=== PATIENT | female | born 1995 | race Caucasian/White ===

== ENCOUNTER 2016-06-10 07:22 | Emergency (ER) | payer MEDICAID ==
[~2016-06-10] VITALS: Ht 172.7 cm; Wt 104.0 kg
[2016-06-10] MEDS ORDERED: SODIUM CHLORIDE 0.9% 1,000 ML IV ONE (07:56)
[2016-06-10] MEDS ORDERED: KETOROLAC 30MG/ML VIAL IV ONE (08:00)
[2016-06-10 08:15] LABS: BASOPHILS % 0.9 % (0.0-2.0); EOSINOPHILS % 0.6 % (0.0-5.0); HEMATOCRIT. 38.8 % (36.0-48.0); HEMOGLOBIN. 12.8 g/dL (12.0-16.0); LYMPHOCYTES % 17.5 % (20.0-50.0); MEAN CORPUSCULAR HEMOGLOBIN 27.7 pg (28.0-32.0); MEAN CORPUSCULAR HGB CONC 32.8 g/dL (31.0-37.0); MEAN CORPUSCULAR VOLUME 84.5 fL (81.0-99.0); MEAN PLATELET VOLUME 9.2 fl (7.4-10.4); MONOCYTES % 4.7 % (2.0-8.0); NEUTROPHILS % 76.3 % (40.0-76.0); PLATELET 310 x1000/uL (130-400); RED CELL DISTRIBUTION WIDTH 13.8 % (11.6-14.6); WHITE BLOOD COUNT 16.3 x1000/uL (4.5-11.0)
[2016-06-10 08:22] LABS: PARTIAL THROMBOPLASTIN TIME 27.9 sec (24.0-34.0); PROTHROMBIN TIME 10.4 sec
[2016-06-10 08:26] LABS: ALANINE AMINOTRANSFERASE 30 IU/L (13-61); ALBUMIN 3.8 g/dL (3.4-5.0); ANION GAP 14; CALCIUM 9.3 mg/dL (8.5-10.1); CARBON DIOXIDE 26 mEq/L (21-32); CHLORIDE 104 mEq/L (98-107); INDEX HEMOLYSI 1 (1-3); INDEX ICTERIC 1 (1-4); INDEX LIPEMIC 1 (1-3); LIPASE 127 IU/L (73-393); UREA NITROGEN BLOOD 8 mg/dL (7-21); eGFR > 60 mL/min (>60)
[2016-06-10 08:47] LABS: GLUCOSE URINE NEGATIVE (NEGATIVE); KETONES URINE NEGATIVE (NEGATIVE); LEUKOCYTE ESTERASE URINE 3+ (NEGATIVE); NITRITE URINE POSITIVE (NEGATIVE); OCCULT BLOOD URINE 3+ (NEGATIVE); PH URINE 5.5 (4.5-8.0); PROTEIN URINE 2+ (NEGATIVE); SPECIFIC GRAVITY URINE 1.018 (1.005-1.030); UROBILINOGEN URINE 0.2 E.U./dL (0.2-1.0)
[2016-06-10 08:48] LABS: CLARITY URINE CLOUDY (CLEAR); COLOR URINE YELLOW (YELLOW)
[2016-06-10] MEDS ORDERED: CEFTRIAXONE 1 G PREMIX 50 ML IV ONE (09:00)
[2016-06-10 09:07] LABS: RBC URINE 25-50 /hpf (0-2); WBC URINE 50-100 /hpf (0-2)
[2016-06-10 09:08] LABS: BACTERIA URINE 2+; SQUAMOUS EPITHELIAL CELL URINE 3+ /lpf (RARE/1+)
[2016-06-10] MEDS ORDERED: LEVOFLOXACIN 500MG TABLET PO ONE (10:30)
[2016-06-10 11:31] VITALS: BP 123/74
== END 2016-06-10 11:56 | disposition home or self-care (01) ==
LOC: ER 08:20
DX: N10 Acute pyelonephritis (principal); R10.31 Right lower quadrant pain; M54.5 Low back pain; K76.0 Fatty (change of) liver, not elsewhere classified; R11.2 Nausea with vomiting, unspecified; R16.0 Hepatomegaly, not elsewhere classified; Z90.49 Acquired absence of other specified parts of digestive tract
CPT/HCPCS: 36415; 74176; 80053; 81001; 81025; 83690; 85025; 85610; 85730; 87077; 87086; 87186; 96361; 96365; 96375; 99285; J0696; J1885; J7030; Z7610

== ENCOUNTER 2016-11-07 12:19 | Emergency (ER) | payer MEDICAID ==
[~2016-11-07] VITALS: Ht 172.7 cm; Wt 95.0 kg
[2016-11-07] MEDS ORDERED: IBUPROFEN 600MG TABLET PO ONE (15:15)
[2016-11-07 16:01] VITALS: BP 127/73
== END 2016-11-07 16:08 | disposition home or self-care (01) ==
LOC: ER 15:00
DX: F41.9 Anxiety disorder, unspecified (principal); R51 Headache; E66.9 Obesity, unspecified
CPT/HCPCS: 99284

== ENCOUNTER 2020-09-19 16:06 | Emergency (ER) | payer MEDICAID, OTHER ==
[~2020-09-19] VITALS: Ht 172.7 cm; Wt 127.0 kg
[2020-09-19 18:41] LABS: BASOPHILS % 0.6 % (0.0-2.0); EOSINOPHILS % 0.8 % (0.0-5.0); HEMATOCRIT. 37.5 % (36.0-48.0); LYMPHOCYTES % 25.1 % (20.0-50.0); MEAN CORPUSCULAR HEMOGLOBIN 28.3 pg (28.0-32.0); MONOCYTES % 6.2 % (2.0-8.0); NEUTROPHILS % 67.3 % (40.0-76.0); PLATELET 356 x1000/uL (130-400); RED BLOOD CELL COUNT 4.57 mill/uL (4.2-5.4); RED CELL DISTRIBUTION WIDTH 14.3 % (11.6-14.6)
[2020-09-19 18:45] LABS: CHLORIDE 107 mEq/L (98-107)
[2020-09-19 18:56] LABS: CLARITY URINE TURBID (CLEAR); COLOR URINE ORANGE (YELLOW); KETONES URINE TRACE (NEGATIVE); LEUKOCYTE ESTERASE URINE 2+ (NEGATIVE); NITRITE URINE NEGATIVE (NEGATIVE); OCCULT BLOOD URINE 3+ (NEGATIVE); PH URINE 7.5 (4.5-8.0); PROTEIN URINE 2+ (NEGATIVE); SPECIFIC GRAVITY URINE 1.026 (1.005-1.030)
[2020-09-19 19:08] LABS: B-HCG QUANTITATIVE 3908 mIU/mL (<3)
[2020-09-19] MEDS ORDERED: CEFTRIAXONE SODIUM 1 G/VIAL IM ONE (19:30)
[2020-09-19] MEDS ORDERED: LIDOCAINE HCL 1% 20ML VIAL (Pyxis) INJ INFIL ONE (20:00)
[2020-09-19] MEDS ORDERED: CEPH500C2 MT (20:39)
[2020-09-19 21:48] VITALS: BP 125/72
== END 2020-09-19 21:50 | disposition home or self-care (01) ==
LOC: ER 17:46
DX: O23.41 Unspecified infection of urinary tract in pregnancy, first trimester (principal); Z3A.01 Less than 8 weeks gestation of pregnancy
CPT/HCPCS: 36415; 76801; 76817; 80053; 81003; 81025; 84702; 85025; 86850; 86900; 86901; 96372; 99284; J0696; J3490

== ENCOUNTER 2021-02-19 09:40 | Observation (INO) | payer OTHER ==
[~2021-02-19 09:40] MED LIST: CEPH500C2 MT
[2021-02-19 12:41] LABS: BASOPHILS % 0.5 % (0.0-2.0); EOSINOPHILS % 0.2 % (0.0-5.0); HEMATOCRIT. 36.3 % (36.0-48.0); HEMOGLOBIN. 11.5 g/dL (12.0-16.0); LYMPHOCYTES % 12.2 % (20.0-50.0); MEAN CORPUSCULAR HEMOGLOBIN 26.4 pg (28.0-32.0); MEAN CORPUSCULAR VOLUME 83.3 fL (81.0-99.0); MEAN PLATELET VOLUME 9.2 fl (7.4-10.4); MONOCYTES % 4.4 % (2.0-8.0); NEUTROPHILS % 82.7 % (40.0-76.0); PLATELET 347 x1000/uL (130-400); RED BLOOD CELL COUNT 4.36 mill/uL (4.2-5.4); RED CELL DISTRIBUTION WIDTH 14.7 % (11.6-14.6)
[2021-02-19 12:45] LABS: CHLORIDE 107 mEq/L (98-107); CLARITY URINE CLOUDY (CLEAR); COLOR URINE DARK YELLOW (YELLOW); KETONES URINE 1+ (NEGATIVE); LEUKOCYTE ESTERASE URINE 1+ (NEGATIVE); NITRITE URINE NEGATIVE (NEGATIVE); OCCULT BLOOD URINE NEGATIVE (NEGATIVE); PH URINE 5.5 (4.5-8.0); PROTEIN URINE 1+ (NEGATIVE)
[2021-02-19] MEDS ORDERED: PNV1TABL50 MT (14:43)
== END 2021-02-19 14:50 | disposition home or self-care (01) ==
LOC: 8 EST A/PP 09:40
PROVIDERS: ADMIT Obstetrics & Gynecology; ATTEND Obstetrics & Gynecology
DX: O36.8120 Decreased fetal movements, second trimester, not applicable or unspecified (principal); Z3A.27 27 weeks gestation of pregnancy
CPT/HCPCS: 36415; 59025; 76805; 80053; 81003; 85025; G0378; 99281

== ENCOUNTER 2021-04-25 18:45 | Observation (INO) | payer MEDICAID ==
[~2021-04-25] VITALS: Ht 172.7 cm; Wt 134.3 kg
[~2021-04-25 18:45] MED LIST changes: +PNV1TABL50 MT
[2021-04-25] MEDS ORDERED: PRENATAL MULTIVITAMIN (21:01)
== END 2021-04-25 21:25 | disposition home or self-care (01) ==
LOC: 8EST NSY 18:45 → 8 EST LDRP 19:14
PROVIDERS: ADMIT Obstetrics & Gynecology; ATTEND Obstetrics & Gynecology
DX: O36.8330 Maternal care for abnormalities of the fetal heart rate or rhythm, third trimester, not applicable or unspecified (principal); O62.9 Abnormality of forces of labor, unspecified; Z3A.36 36 weeks gestation of pregnancy
CPT/HCPCS: 76805; 76818; 99281; G0378; 59025

== ENCOUNTER 2021-05-08 18:32 | Inpatient (IN) | payer MEDICAID, OTHER ==
[~2021-05-08] VITALS: Ht 172.7 cm; Wt 134.7 kg
[2021-05-08] MEDS: LACTATED RINGERS 1,000 ML IV SCH (00:35)
[~2021-05-08 18:32] MED LIST changes: -CEPH500C2 MT; -PNV1TABL50 MT; +PRENATAL MULTIVITAMIN
[2021-05-08] MEDS ORDERED: DEXT 5%/LACTATED RINGERS 1,000 ML IV SCH (20:45)
[2021-05-08] MEDS ORDERED: RHO(D) IMMUNE GLOBULIN 300 MCG/SYR IM ONE (20:45)
[2021-05-08] MEDS ORDERED: LIDOCAINE HCL 1% 20ML VIAL (Pyxis) INJ INFIL SCH (20:45)
[2021-05-08] MEDS ORDERED: AMPICILLIN 2GM in NS 100ML 100 ML IV NR (21:00)
[2021-05-08] MEDS ORDERED: DEXT 5%/LR + PITOCIN 20UNITS/L 1,000 ML IV SCH (21:15)
[2021-05-08] MEDS ORDERED: DEXT 5%/LR + PITOCIN 20UNITS/L 1,000 ML IV ONE (21:23)
[2021-05-08 21:50] LABS: BASOPHILS % 0.4 % (0.0-2.0); EOSINOPHILS % 0.7 % (0.0-5.0); HEMOGLOBIN. 11.5 g/dL (12.0-16.0); LYMPHOCYTES % 21.9 % (20.0-50.0); MEAN CORPUSCULAR HEMOGLOBIN 26.4 pg (28.0-32.0); MEAN CORPUSCULAR VOLUME 80.1 fL (81.0-99.0); MEAN PLATELET VOLUME 10.1 fl (7.4-10.4); MONOCYTES % 6.1 % (2.0-8.0); NEUTROPHILS % 70.9 % (40.0-76.0); PLATELET 252 x1000/uL (130-400); RED BLOOD CELL COUNT 4.36 mill/uL (4.2-5.4)
[2021-05-08 21:54] LABS: CLARITY URINE CLOUDY (CLEAR); COLOR URINE YELLOW (YELLOW); KETONES URINE TRACE (NEGATIVE); LEUKOCYTE ESTERASE URINE 1+ (NEGATIVE); NITRITE URINE NEGATIVE (NEGATIVE); OCCULT BLOOD URINE NEGATIVE (NEGATIVE); PH URINE 5.5 (4.5-8.0); PROTEIN URINE NEGATIVE (NEGATIVE); SPECIFIC GRAVITY URINE 1.028 (1.005-1.030); UROBILINOGEN URINE 0.2 E.U./dL (0.2-1.0)
[2021-05-08 22:05] LABS: *BARBITURATES SCREEN URINE NEGATIVE (NEGATIVE); *BENZODIAZEPINES SCREEN URINE NEGATIVE (NEGATIVE)
[2021-05-08 22:06] LABS: *AMPHETAMINES SCREEN URINE NEGATIVE (NEGATIVE); *COCAINE SCREEN URINE NEGATIVE (NEGATIVE); OPIATES URINE SCREEN NEGATIVE (NEGATIVE); PHENCYCLIDINE URINE SCREEN NEGATIVE (NEGATIVE)
[2021-05-08 22:07] LABS: CANNABINOID URINE SCREEN NEGATIVE (NEGATIVE)
[2021-05-08 22:11] LABS: INR 0.9; PARTIAL THROMBOPLASTIN TIME 26.8 sec (23.4-31.0); PROTHROMBIN TIME 9.7 sec (9.6-11.0)
[2021-05-08 22:32] LABS: HEPATITIS B SURFACE ANTIGEN NEGATIVE
[2021-05-09] MEDS: BUTORPHANOL TARTRATE 2 MG/ML VIAL IV PRN ×2 (02:23→04:44)
[2021-05-09] MEDS ORDERED: AMPICILLIN 1,000 MG in SODIUM CHLORIDE 0.9% 50 ML IV SCH (03:00)
[2021-05-09] MEDS: LACTATED RINGERS 1,000 ML IV SCH ×3 (06:42→14:21)
[2021-05-09] MEDS ORDERED: BUPIVACAINE HCL/PF 0.25% (2.5MG/ML) 10ML ONE (08:16)
[2021-05-09] MEDS ORDERED: FENTANYL CITRATE/PF 50MCG/ML 2ML VIAL ONE (08:16)
[2021-05-09] MEDS ORDERED: ROPIVACAINE HCL/PF EPIDURAL 200 ML EPI ONE (08:16)
[2021-05-09] MEDS ORDERED: LIDOCAINE HCL 1% 20ML VIAL (Pyxis) INJ INFIL NR (17:10)
[2021-05-09] MEDS ORDERED: LIDOCAINE HCL 1% 10 MG/ML 10ML VIAL ONE (17:21)
[2021-05-09] MEDS ORDERED: OXYCODONE HCL/ACETAMINOPHEN 5/325MG TABLET PO PRN (17:45)
[2021-05-09] MEDS ORDERED: DEXT 5%/LR + PITOCIN 20UNITS/L 1,000 ML IV SCH (17:45)
[2021-05-09] MEDS ORDERED: BENZOCAINE/LANOLIN/ALOE VERA SPRAY TOP PRN (17:45)
[2021-05-09] MEDS ORDERED: RHO(D) IMMUNE GLOBULIN 300 MCG/SYR IM PRN (17:45)
[2021-05-09] MEDS ORDERED: IBUPROFEN 400MG TABLET PO PRN (17:45)
[2021-05-09] MEDS ORDERED: LIDOCAINE HCL 1% 30ML VIAL (10MG/ML) INFIL NR (18:30)
[2021-05-09 20:20] VITALS: BP 110/57
[2021-05-09 20:40] VITALS: BP 117/62
[2021-05-10 00:01] VITALS: BP 122/70
[2021-05-10 04:00] VITALS: BP 112/71
[2021-05-10 07:46] LABS: BASOPHILS % 0.2 % (0.0-2.0); EOSINOPHILS % 0.1 % (0.0-5.0); HEMATOCRIT. 27.7 % (36.0-48.0); HEMOGLOBIN. 8.9 g/dL (12.0-16.0); LYMPHOCYTES % 12.8 % (20.0-50.0); MEAN CORPUSCULAR HEMOGLOBIN 25.8 pg (28.0-32.0); MEAN CORPUSCULAR VOLUME 80.4 fL (81.0-99.0); MEAN PLATELET VOLUME 10.2 fl (7.4-10.4); MONOCYTES % 6.7 % (2.0-8.0); NEUTROPHILS % 80.2 % (40.0-76.0); PLATELET 207 x1000/uL (130-400); RED BLOOD CELL COUNT 3.45 mill/uL (4.2-5.4); RED CELL DISTRIBUTION WIDTH 15.8 % (11.6-14.6)
[2021-05-10 08:00] VITALS: BP 124/77
[2021-05-10] MEDS: PRENATAL VIT/FE FUMARATE/FA TABLET PO SCH (08:25)
[2021-05-10] MEDS: FERROUS SULFATE 325MG TABLET PO SCH ×3 (08:26→20:07)
[2021-05-10] MEDS: IBUPROFEN 800MG TABLET PO PRN ×2 (08:26→20:08)
[2021-05-10 16:20] VITALS: BP 124/59
[2021-05-10 19:05] VITALS: BP 132/69
[2021-05-11 03:45] VITALS: BP 132/70
[2021-05-11 08:20] VITALS: BP 129/69
[2021-05-11] MEDS: FERROUS SULFATE 325MG TABLET PO SCH ×2 (08:33→16:39)
[2021-05-11] MEDS: PRENATAL VIT/FE FUMARATE/FA TABLET PO SCH (08:33)
[2021-05-11 10:00] LABS: BASOPHILS % 0.4 % (0.0-2.0); EOSINOPHILS % 0.9 % (0.0-5.0); HEMATOCRIT. 27.7 % (36.0-48.0); HEMOGLOBIN. 9.1 g/dL (12.0-16.0); LYMPHOCYTES % 17.3 % (20.0-50.0); MEAN CORPUSCULAR HEMOGLOBIN 26.5 pg (28.0-32.0); MEAN CORPUSCULAR VOLUME 80.7 fL (81.0-99.0); MEAN PLATELET VOLUME 9.9 fl (7.4-10.4); MONOCYTES % 4.6 % (2.0-8.0); NEUTROPHILS % 76.8 % (40.0-76.0); PLATELET 209 x1000/uL (130-400); RED BLOOD CELL COUNT 3.43 mill/uL (4.2-5.4); RED CELL DISTRIBUTION WIDTH 15.8 % (11.6-14.6)
[2021-05-11 16:30] VITALS: BP 128/69
[2021-05-11] MEDS: IBUPROFEN 800MG TABLET PO PRN (16:39)
[2021-05-11 16:50] LABS: HEMATOCRIT 27.2 % (36.0-48.0); HEMOGLOBIN 9.1 g/dL (12.0-16.0); MEAN CORPUSCULAR HEMOGLOBIN 26.7 pg (28.0-32.0); MEAN CORPUSCULAR VOLUME 79.4 fL (81.0-99.0); PLATELET 226 x1000/uL (130-400); RED BLOOD CELL COUNT 3.42 mill/uL (4.2-5.4); RED CELL DISTRIBUTION WIDTH 15.9 % (11.6-14.6)
[2021-05-11 20:00] VITALS: BP 121/68
[2021-05-12] MEDS ORDERED: FERR-63 PO (03:45)
[2021-05-12] MEDS ORDERED: IBUP-2030 PO (03:45)
[2021-05-12 04:00] VITALS: BP 119/70
[2021-05-12 06:57] LABS: HEMATOCRIT 26.6 % (36.0-48.0); HEMOGLOBIN 8.7 g/dL (12.0-16.0); MEAN CORPUSCULAR HEMOGLOBIN 26.3 pg (28.0-32.0); MEAN CORPUSCULAR VOLUME 80.2 fL (81.0-99.0); PLATELET 234 x1000/uL (130-400); RED BLOOD CELL COUNT 3.31 mill/uL (4.2-5.4); RED CELL DISTRIBUTION WIDTH 16.3 % (11.6-14.6)
[2021-05-12 08:00] VITALS: BP 131/84
[2021-05-12] MEDS: IBUPROFEN 800MG TABLET PO PRN (08:52)
[2021-05-12] MEDS: PRENATAL VIT/FE FUMARATE/FA TABLET PO SCH (08:53)
[2021-05-12] MEDS: FERROUS SULFATE 325MG TABLET PO SCH (08:53)
== END 2021-05-12 10:40 | disposition home or self-care (01) | DRG 560 ==
LOC: OBSVTOIN 18:32 → 8 EST LDRP 18:32 → 8EST 05-09 21:32
PROVIDERS: ADMIT Obstetrics & Gynecology; ATTEND Obstetrics & Gynecology
PROC: 10E0XZZ Delivery of Products of Conception, External Approach (ICD-10-PCS; principal; 2021-05-09)
PROC: 0HQ9XZZ Repair Perineum Skin, External Approach (ICD-10-PCS; 2021-05-09)
PROC: 3E0R3BZ Introduction of Anesthetic Agent into Spinal Canal, Percutaneous Approach (ICD-10-PCS; 2021-05-09)
PROC: 00HU33Z Insertion of Infusion Device into Spinal Canal, Percutaneous Approach (ICD-10-PCS; 2021-05-09)
DX: O99.214 Obesity complicating childbirth (principal); Z37.0 Single live birth; E66.01 Morbid (severe) obesity due to excess calories; Z20.822 Contact with and (suspected) exposure to COVID-19; Z3A.38 38 weeks gestation of pregnancy; Z82.49 Family history of ischemic heart disease and other diseases of the circulatory system; O70.0 First degree perineal laceration during delivery
CPT/HCPCS: 36415; 80305; 81003; 84550; 85025; 85027; 85384; 86592; 86703; 86762; 86850; 86900; 87340; 87426; 99281; G0378; J0290; J0595; J2590; J2795; J3010; J3490; J7120